=== PATIENT | male | born 1955 | race Caucasian/White ===

== ENCOUNTER 2025-02-09 06:17 | Inpatient (IN) | payer OTHER, BC ==
[2025-02-09 06:32] VITALS: BMI 30.9
[2025-02-09] MEDS: SODIUM CHLORIDE 0.9% 500 ML INFUS.BAG IV ONE (07:45)
[2025-02-09 08:09] LABS: BASOPHILS # 0.01 x10^3/uL (0.01-0.08); HEMOGLOBIN 8.3 g/dL (13.7-17.5); MEAN CELL VOLUME 77.2 fl (79.0-92.2); RDW 14.6 % (12.2-16.6)
[2025-02-09 08:10] LABS: ABSOLUTE IMMATURE GRANULOCYTES 0.13 x10^3/uL (0.0-0.031); HEMATOCRIT 23.7 % (40.1-51.0); MEAN PLT VOLUME 10.4 fl (9.4-12.4); MONOCYTE # 0.85 x10^3/uL (0.30-0.82); MONOCYTE % 17.6 % (5.3-12.2); PLATELET COUNT 73 x10^3/uL (163-337)
[2025-02-09 08:24] LABS: PH,URINE 5.5 (5.0-8.0); URINE APPEARANCE CLEAR; URINE BILIRUBIN NEGATIVE (NEGATIVE); URINE COLOR YELLOW; URINE GLUCOSE (UA) NEGATIVE (NEGATIVE); URINE KETONE NEGATIVE (NEGATIVE); URINE LEUK ESTERASE NEGATIVE (NEGATIVE); URINE NITRITE NEGATIVE (NEGATIVE); URINE PROTEIN NEGATIVE (NEGATIVE); URINE UROBILINOGEN 0.2 mg/dL (0.2-1.0)
[2025-02-09 08:33] LABS: POTASSIUM 3.6 mmol/L (3.5-5.1)
[2025-02-09 08:35] LABS: ALBUMIN 2.1 g/dl (3.4-5.0); BLOOD UREA NITROGEN 65.9 mg/dL (7-18); CALCIUM 8.2 mg/dL (8.5-10.1); MAGNESIUM 2.4 mg/dL (1.8-2.4)
[2025-02-09 08:38] LABS: CREATININE 1.5 mg/dL (0.55-1.3)
[2025-02-09 08:40] LABS: BILIRUBIN,TOTAL 1.8 mg/dL (0.2-1); TOT PROT 5.8 g/dl (6.4-8.2)
[2025-02-09 09:29] LABS: BILIRUBIN,DIRECT 0.9 mg/dL (0.0-0.2)
[2025-02-09 11:05] LABS: POTASSIUM 3.5 mmol/L (3.5-5.1)
[2025-02-09 11:08] LABS: CALCIUM 7.9 mg/dL (8.5-10.1)
[2025-02-09 11:09] LABS: BLOOD UREA NITROGEN 61.3 mg/dL (7-18)
[2025-02-09 11:12] LABS: CREATININE 1.3 mg/dL (0.55-1.3)
[2025-02-09] MEDS: FAMOTIDINE 20 MG/50 ML IVPB 20 MG/50 ML MG IVPB SCH (12:54)
[2025-02-09 15:13] LABS: HEMOGLOBIN 7.6 g/dL (13.7-17.5)
[2025-02-09 15:14] LABS: HEMATOCRIT 22.1 % (40.1-51.0); MCHC 34.4 g/dl (32.3-36.5); RDW 14.6 % (12.2-16.6)
[2025-02-09 15:15] LABS: PLATELET COUNT 68 x10^3/uL (163-337)
[2025-02-09 15:19] LABS: INR 1.25 (0.83-1.09); PROTHROMBIN TIME (PATIENT) 13.8 SEC (9.7-13.0)
[2025-02-09] MEDS: POTASSIUM CHLORIDE 10 MEQ in SODIUM CHLORIDE 1,000 ML IV SCH (17:52)
[2025-02-09] MEDS: MELATONIN 5 MG TABLETS PO PRN (20:42)
[2025-02-09 21:08] LABS: PH,URINE 5.5 (5.0-8.0); URINE APPEARANCE CLEAR; URINE BILIRUBIN NEGATIVE (NEGATIVE); URINE COLOR YELLOW; URINE GLUCOSE (UA) NEGATIVE (NEGATIVE); URINE KETONE NEGATIVE (NEGATIVE); URINE LEUK ESTERASE NEGATIVE (NEGATIVE); URINE NITRITE NEGATIVE (NEGATIVE); URINE PROTEIN NEGATIVE (NEGATIVE); URINE UROBILINOGEN 0.2 mg/dL (0.2-1.0)
[2025-02-10] MEDS: SODIUM CHLORIDE 1,000 ML IV STA (10:13)
[2025-02-10] MEDS: PANTOPRAZOLE 40 MG TABLET PO SCH (10:15)
[2025-02-10] MEDS: ATOVAQUONE 750 MG/5 ML (UNIT-DOSE PACKAGING) PO SCH (10:18)
[2025-02-10 10:34] LABS: HEMOGLOBIN 7.5 g/dL (13.7-17.5); RDW 15.6 % (12.2-16.6)
[2025-02-10 10:36] LABS: HEMATOCRIT 22.4 % (40.1-51.0); MCHC 33.5 g/dl (32.3-36.5); MEAN CELL VOLUME 79.7 fl (79.0-92.2); MEAN PLT VOLUME 10.6 fl (9.4-12.4); PLATELET COUNT 75 x10^3/uL (163-337)
[2025-02-10 10:39] LABS: Reticulocyte % 5.13 % (0.51-1.81)
[2025-02-10 11:01] LABS: CALCIUM 8.1 mg/dL (8.5-10.1)
[2025-02-10 11:02] LABS: ALBUMIN 1.9 g/dl (3.4-5.0); BLOOD UREA NITROGEN 32.2 mg/dL (7-18)
[2025-02-10 11:03] LABS: CREATININE 0.9 mg/dL (0.55-1.3); URIC ACID 8.5 mg/dL (2.6-7.2)
[2025-02-10 11:04] LABS: BILIRUBIN,DIRECT 0.7 mg/dL (0.0-0.2); BILIRUBIN,TOTAL 1.5 mg/dL (0.2-1); IRON SERUM 37 ug/dL (50-175); TOT PROT 5.2 g/dl (6.4-8.2)
[2025-02-10 11:05] LABS: PHOSPHOROUS 2.4 mg/dL (2.5-4.9)
[2025-02-10 11:07] LABS: TOTAL IRON BINDING CAPACITY 194 ug/dL (250-450)
[2025-02-10] MEDS: AZITHROMYCIN IVPB 500 MG/250 ML BAG IVPB SCH (11:54)
[2025-02-10] MEDS: NAPH,MB-DB/K PH,MBDB POWDER PACKET PO ONE (14:48)
[2025-02-10] MEDS: DOXYCYCLINE INJECTION 100 MG in DEXTROSE 5%-WATER 100 ML IVPB SCH (14:48)
[2025-02-10 17:44] LABS: HEPATITIS B SURF AG NON-MATERN NON-REACTIVE (NONREACTIVE)
[2025-02-10 18:12] LABS: HCV DIAGNOSTIC IN-HOUSE W/RFLX NON-REACTIVE (NONREACTIVE)
[2025-02-10] MEDS: ACETAMINOPHEN 325 MG TABLET (FP) PO ONE (18:19)
[2025-02-11 09:10] LABS: HEMATOCRIT 24.7 % (40.1-51.0); MCHC 32.4 g/dl (32.3-36.5)
[2025-02-11 09:12] LABS: MEAN CELL VOLUME 82.3 fl (79.0-92.2); MEAN PLT VOLUME 11.2 fl (9.4-12.4); PLATELET COUNT 73 x10^3/uL (163-337)
[2025-02-11 09:42] LABS: POTASSIUM 4.9 mmol/L (3.5-5.1)
[2025-02-11 09:46] LABS: ALBUMIN 2.1 g/dl (3.4-5.0); MAGNESIUM 1.9 mg/dL (1.8-2.4)
[2025-02-11 09:48] LABS: CREATININE 0.7 mg/dL (0.55-1.3)
[2025-02-11 09:49] LABS: PHOSPHOROUS 2.3 mg/dL (2.5-4.9)
[2025-02-11 09:50] LABS: BILIRUBIN,TOTAL 1.7 mg/dL (0.2-1); TOT PROT 5.5 g/dl (6.4-8.2)
[2025-02-12 07:05] VITALS: RESP 18
[2025-02-12 08:58] LABS: HEMATOCRIT 25.5 % (40.1-51.0); HEMOGLOBIN 8.1 g/dL (13.7-17.5); MCHC 31.8 g/dl (32.3-36.5); MEAN CELL VOLUME 83.1 fl (79.0-92.2); MEAN PLT VOLUME 11.1 fl (9.4-12.4); PLATELET COUNT 84 x10^3/uL (163-337); RDW 17.5 % (12.2-16.6)
[2025-02-12 09:17] LABS: POTASSIUM 4.6 mmol/L (3.5-5.1)
[2025-02-12 09:24] LABS: CALCIUM 8.2 mg/dL (8.5-10.1)
[2025-02-12 09:25] LABS: ALBUMIN 2.2 g/dl (3.4-5.0); BLOOD UREA NITROGEN 9.7 mg/dL (7-18)
[2025-02-12 09:29] LABS: BILIRUBIN,TOTAL 1.6 mg/dL (0.2-1); CREATININE 0.7 mg/dL (0.55-1.3); TOT PROT 5.6 g/dl (6.4-8.2)
[2025-02-13 09:29] LABS: HEMATOCRIT 29.1 % (40.1-51.0); MCHC 30.9 g/dl (32.3-36.5); MEAN CELL VOLUME 85.1 fl (79.0-92.2); MEAN PLT VOLUME 10.9 fl (9.4-12.4); PLATELET COUNT 101 x10^3/uL (163-337); RDW 18.2 % (12.2-16.6)
[2025-02-13 09:58] LABS: POTASSIUM 4.9 mmol/L (3.5-5.1)
[2025-02-13 10:02] LABS: ALBUMIN 2.4 g/dl (3.4-5.0); BLOOD UREA NITROGEN 9.5 mg/dL (7-18); CALCIUM 8.6 mg/dL (8.5-10.1); MAGNESIUM 1.8 mg/dL (1.8-2.4)
[2025-02-13 10:05] LABS: CREATININE 0.9 mg/dL (0.55-1.3)
[2025-02-13 10:06] LABS: PHOSPHOROUS 2.9 mg/dL (2.5-4.9)
[2025-02-13 10:07] LABS: BILIRUBIN,TOTAL 1.7 mg/dL (0.2-1); TOT PROT 6.2 g/dl (6.4-8.2)
[2025-02-13 14:30] VITALS: BP 116/72; PULSE 94; TEMP 98.2
== END 2025-02-13 16:04 | disposition home or self-care (01) | DRG 867 ==
LOC: JER 06:17 → JERBED 08:46 → J5S 10:29 → OBSVTOIN 13:54 → J5S 02-10 09:24
PROVIDERS: ADMIT Student in an Organized Health Care Education/Training Program
DX: B60.00 Babesiosis, unspecified (principal); E43 Unspecified severe protein-calorie malnutrition; D61.818 Other pancytopenia; N17.9 Acute kidney failure, unspecified; E87.1 Hypo-osmolality and hyponatremia; I10 Essential (primary) hypertension; D50.9 Iron deficiency anemia, unspecified; D69.6 Thrombocytopenia, unspecified; E86.0 Dehydration; N28.1 Cyst of kidney, acquired; R53.1 Weakness; R79.89 Other specified abnormal findings of blood chemistry; Z96.641 Presence of right artificial hip joint; Z68.30 Body mass index [BMI] 30.0-30.9, adult
CPT/HCPCS: 0241U-QW; 36415; 71045-TC-FY; 76705-TC; 76775-TC; 80048; 80053; 81003; 82248; 82272; 82550; 82553; 82607; 82728; 82747; 82930; 83010; 83540; 83550; 83615; 83735; 84100; 84155; 84165; 84443; 84484; 84550; 85014; 85025; 85027; 85610; 86618; 86704; 86708; 86803; 86880; 87086; 87207; 87340; 87517; 87798; 87799; 93005; 93010; 93306-TC; 97116-GP; 97162-GP; 99285-25; G0378